=== PATIENT | male | born 1950 | race Two or more races ===

== ENCOUNTER 2019-09-09 16:23 | Inpatient (IN) | payer MEDICARE, MEDICAID ==
[~2019-09-09] VITALS: Ht 172.7 cm; Wt 83.4 kg
[~2019-09-09 16:23] MED LIST: CLON1TAB13 PO; DESV50TA PO; GABA-1181 PO; LITH300C3 PO; OLME1TAB10 PO; PREG150C PO; VENL-53 PO
[2019-09-09] MEDS ORDERED: HALOPERIDOL LACTATE 5 MG/ML VIAL IM ONE (17:00)
[2019-09-09] MEDS ORDERED: LORazepam 2 MG/ML VIAL IM ONE (17:00)
[2019-09-09] MEDS ORDERED: LORazepam 2 MG TABLET PO PRN (17:00)
[2019-09-09] MEDS ORDERED: HALOPERIDOL 5 MG TABLET PO PRN (17:00)
[2019-09-09] MEDS ORDERED: ZOLPIDEM TARTRATE 10 MG TABLET PO PRN (17:00)
[2019-09-09] MEDS ORDERED: DiphenhydrAMINE HCL 50 MG/ML VIAL IM ONE (17:00)
[2019-09-09 19:00] VITALS: BP 130/80
[2019-09-09] MEDS ORDERED: PNEUMOCOCCAL VACCINE POLYVALENT 0.5 ML VIAL [PPSV23] IM ONE (19:45)
[2019-09-10 06:30] VITALS: BP 126/76
[2019-09-10 08:04] VITALS: BP 131/76
[2019-09-10] MEDS: GABAPENTIN 300 MG CAPSULE PO SCH ×2 (08:18→12:46)
[2019-09-10] MEDS: HYDROCHLOROTHIAZIDE 25 MG TABLET PO SCH (08:18)
[2019-09-10] MEDS: OLMESARTAN MEDOXOMIL 20 MG TABLET PO SCH (08:20)
[2019-09-10] MEDS ORDERED: [UNRECOGNIZED DRUG - OTHER] PO SCH (09:00)
[2019-09-10] MEDS: VENLAFAXINE HCL 75 MG ER CAPSULE PO SCH (14:02)
[2019-09-10] MEDS: NICOTINE POLACRILEX 4 MG GUM CHEW PRN ×2 (14:07→19:58)
[2019-09-10 16:05] VITALS: BP 117/67
[2019-09-10] MEDS: GABAPENTIN 400 MG CAPSULE PO SCH (18:45)
[2019-09-10] MEDS: ClonazePAM 1 MG TABLET PO SCH (19:54)
[2019-09-11] MEDS: NICOTINE POLACRILEX 4 MG GUM CHEW PRN ×5 (02:19→21:55)
[2019-09-11 03:19] VITALS: BP 134/75
[2019-09-11] MEDS: GABAPENTIN 400 MG CAPSULE PO SCH ×3 (08:18→16:11)
[2019-09-11] MEDS: HYDROCHLOROTHIAZIDE 25 MG TABLET PO SCH (08:19)
[2019-09-11] MEDS: VENLAFAXINE HCL 75 MG ER CAPSULE PO SCH (08:19)
[2019-09-11] MEDS: ClonazePAM 1 MG TABLET PO SCH ×2 (08:19→16:11)
[2019-09-11] MEDS: OLMESARTAN MEDOXOMIL 20 MG TABLET PO SCH (08:23)
[2019-09-11 08:27] VITALS: BP 138/71
[2019-09-11 16:14] VITALS: BP 132/78
[2019-09-12 00:13] VITALS: BP 130/70
[2019-09-12 08:47] VITALS: BP 132/86
[2019-09-12] MEDS: VENLAFAXINE HCL 75 MG ER CAPSULE PO SCH (08:49)
[2019-09-12] MEDS: ClonazePAM 1 MG TABLET PO SCH ×2 (08:49→15:56)
[2019-09-12] MEDS: GABAPENTIN 400 MG CAPSULE PO SCH ×3 (08:50→15:56)
[2019-09-12] MEDS: OLMESARTAN MEDOXOMIL 20 MG TABLET PO SCH (08:51)
[2019-09-12] MEDS: HYDROCHLOROTHIAZIDE 25 MG TABLET PO SCH (08:54)
[2019-09-12] MEDS ORDERED: VENL-67 PO (11:30)
[2019-09-12] MEDS ORDERED: CLON1TAB12 PO (11:30)
[2019-09-12] MEDS ORDERED: GABA-1201 PO (11:31)
[2019-09-12] MEDS ORDERED: HYDR-1475 PO (13:41)
[2019-09-12] MEDS ORDERED: OLME40TA8 PO (13:41)
== END 2019-09-12 17:52 | disposition home or self-care (01) | DRG 885 ==
LOC: B2X 17:08 → UNDOADMIN 17:08 → B2X 09-11 21:36 → UNDODISIN 09-12 17:52
PROVIDERS: ADMIT Psychiatry & Neurology Psychiatry; ATTEND Psychiatry & Neurology Psychiatry
DX: F31.64 Bipolar disorder, current episode mixed, severe, with psychotic features (principal); G62.9 Polyneuropathy, unspecified; I10 Essential (primary) hypertension; F17.210 Nicotine dependence, cigarettes, uncomplicated; Z79.899 Other long term (current) drug therapy; Z91.19 Patient's noncompliance with other medical treatment and regimen; Z88.0 Allergy status to penicillin; Z79.891 Long term (current) use of opiate analgesic; Z79.2 Long term (current) use of antibiotics; Z79.01 Long term (current) use of anticoagulants
CPT/HCPCS: 87081; J1200; J1630; J2060

== ENCOUNTER 2023-05-14 22:14 | Emergency (ER) | payer MEDICARE, MEDICAID ==
[~2023-05-14] VITALS: Ht 180.3 cm; Wt 84.1 kg
[~2023-05-14 22:14] MED LIST changes: +CLON1TAB12 PO; -CLON1TAB13 PO; -DESV50TA PO; -GABA-1181 PO; +GABA-1201 PO; +HYDR25TA2 PO; -LITH300C3 PO; -OLME1TAB10 PO; +OLME40TA70 PO; -PREG150C PO; -VENL-53 PO; +VENL-67 PO
[2023-05-15 02:21] LABS: BASOPHILS % (AUTO) 0.6 % (0.0-2.0); EOSINOPHILS % (AUTO) 3.1 % (1.0-6.0); HEMATOCRIT 36.3 % (41-53); HEMOGLOBIN 12.3 g/dL (13.5-17.5); LYMPHOCYTES # (AUTO) 2.3 K/uL (1.0-4.8); LYMPHOCYTES % (AUTO) 26.1 % (22.0-44.0); MEAN CORPUSCULAR HEMOGLOBIN 30.3 pg (26.0-34.0); MEAN CORPUSCULAR VOLUME 89 fL (80-100); MONOCYTES # (AUTO) 0.7 K/uL (0.1-1.0); MONOCYTES % (AUTO) 8.3 % (2.0-9.0); NEUTROPHILS # (AUTO) 5.4 K/uL (1.8-7.7); NEUTROPHILS % (AUTO) 61.9 % (40.0-70.0); PLATELET COUNT (AUTO) 274 K/uL (150-450); RED BLOOD CELL COUNT(AUTO) 4.07 MIL/uL (4.50-5.90); RED CELL DISTRIBUTION WIDTH 14.2 % (11.5-14.5); WHITE BLOOD COUNT (AUTO) 8.7 K/uL (4.5-11.0)
[2023-05-15 02:26] LABS: PH,URINE DRUG SCREEN 7.5 (5.0-8.0)
[2023-05-15] MEDS: LORazepam 1 MG TABLET PO ONE (02:29)
[2023-05-15 02:30] LABS: ANION GAP 9 mmol/L (8-16); CARBON DIOXIDE 29 mmol/L (22-29); CHLORIDE 100 mmol/L (98-107); CREATININE 1.13 mg/dL (0.60-1.30); GLOMERULAR FILTR. RATE CALC > 60 mL/min (>60); GLUCOSE,RANDOM 183 mg/dL (70-110); POTASSIUM 4.2 mmol/L (3.5-5.1); SODIUM SERUM 138 mmol/L (136-145); UREA NITROGEN, BLOOD 21 mg/dL (7-18)
[2023-05-15 02:33] LABS: ALCOHOL, URINE DRUG SCREEN NEGATIVE (NEGATIVE); AMPHET/METH SCREEN,URINE NEGATIVE (NEGATIVE); BARBITURATE SCREEN, URINE NEGATIVE (NEGATIVE); BENZODIAZEPINES SCREEN,URINE NEGATIVE (NEGATIVE); CANNABINOID SCREEN,URINE POSITIVE (NEGATIVE); COCAINE SCREEN,URINE NEGATIVE (NEGATIVE); METHADONE SCREEN, URINE NEGATIVE (NEGATIVE); OPIATE SCREEN,URINE NEGATIVE (NEGATIVE); PHENCYCLIDINE SCREEN,URINE NEGATIVE (NEGATIVE)
[2023-05-15 02:36] LABS: ALANINE AMINOTRANSFERASE 28 U/L (12-78); ALBUMIN 3.3 g/dL (3.4-5.0); ALKALINE PHOSPHATASE 99 U/L (46-116); ASPARTATE AMINOTRANSFERASE 18 U/L (15-37); BILIRUBIN,TOTAL 0.3 mg/dL (0.1-1.0); TOTAL PROTEIN, SERUM 6.5 g/dL (6.4-8.2)
[2023-05-15 02:38] LABS: ALCOHOL, BLOOD (SERUM) < 3 mg/dL (0-10)
[2023-05-15] MEDS: GABAPENTIN 400 MG CAPSULE PO ONE (03:08)
[2023-05-15 03:39] LABS: COVID AG,FIA SOURCE NASAL SWAB
[2023-05-15 03:41] LABS: SARS-COV2 (COVID) ANTIGEN,FIA Negative (Negative)
[2023-05-15 07:25] VITALS: BP 142/70; PULSE 77; RESP 18; TEMP 98.9
[2023-05-15] MEDS ORDERED: GABA-1216 PO (12:33)
== END 2023-05-15 08:00 | disposition admitted as inpatient to this hospital (09) ==
LOC: EMS 05-15 01:45
DX: L98.491 Non-pressure chronic ulcer of skin of other sites limited to breakdown of skin (principal); R45.851 Suicidal ideations; F31.9 Bipolar disorder, unspecified; I10 Essential (primary) hypertension; Z89.422 Acquired absence of other left toe(s); Z20.822 Contact with and (suspected) exposure to COVID-19
CPT/HCPCS: 99285; 87426; 80053; 85025; 36415; 73620; 80307; G0480